=== PATIENT | male | born 1995 | race Hispanic/Latino ===

== ENCOUNTER 2020-07-18 09:43 | Emergency (ER) | payer OTHER ==
[~2020-07-18] VITALS: Ht 162.6 cm; Wt 63.5 kg
[~2020-07-18 09:43] MED LIST: KEFLEX500 MG PO; NORCO 5-325 TA1 EACH PO
[2020-07-18] MEDS ORDERED: SODIUM CHLORIDE 0.9% 1000ML 1,000 ML IV STA (10:06)
[2020-07-18] MEDS ORDERED: PANTOPRAZOLE 40 MG 10ML VIAL IV NR (10:15)
[2020-07-18] MEDS ORDERED: ONDANSETRON HCL INJ 2MG/ML 2ML 2 MG/ML VIAL IV NR (10:15)
[2020-07-18 10:28] LABS: BASOPHILS % 0.4 % (0.0-1.0); EOSINOPHILS # (AUTO) 0.1 (0.0-0.4); EOSINOPHILS % 1.4 % (0.0-6.0); HEMATOCRIT 46.1 % (38.2-49.6); HEMOGLOBIN 15.1 g/dL (14.0-18.0); LYMPHOCYTES # (AUTO) 1.7 (1.0-3.2); LYMPHOCYTES % 19.8 % (18.0-39.1); MEAN CORPUSCULAR HGB CONC 32.8 g/dL (31-35); MEAN CORPUSCULAR VOLUME 85.4 fL (81-99); MONOCYTES # (AUTO) 0.5 (0.2-0.8); MONOCYTES % 6.1 % (4.4-11.3); NEUTROPHILS # (AUTO) 6.1 (2.1-6.9); NEUTROPHILS % 71.8 % (38.7-80.0); PLATELET COUNT 279 x10e3/uL (140-360); RED CELL DISTRIBUTION WIDTH 13.6 % (11.7-14.4)
--- NOTE | 2020-07-18 10:30 | NUR ---
no EKG order, per Dr. Galvez
[2020-07-18 10:32] LABS: BILIRUBIN,URINE NEGATIVE (NEGATIVE); CLARITY,URINE CLEAR (CLEAR); COLOR,URINE YELLOW (YELLOW); KETONES,URINE NEGATIVE (NEGATIVE); LEUKOCYTE ESTERASE ,URINE NEGATIVE (NEGATIVE); NITRITE,URINE NEGATIVE (NEGATIVE); PROTEIN,URINE DIPSTICK NEGATIVE (NEGATIVE); URINE UROBILINOGEN 0.2 mg/dL (0.2 - 1)
[2020-07-18 10:37] LABS: RBC,URINE 0-5 /HPF (0-5); WBC,URINE (MAN) 0-5 /HPF (0-5)
[2020-07-18 10:38] LABS: BACTERIA,URINE RARE /HPF; EPITHELIAL CELLS,URINE RARE /LPF
[2020-07-18 10:38] LABS: INR 0.96; PARTIAL THROMBOPLASTIN TIME 28.9 seconds (23.8-35.5); PROTHROMBIN TIME 13.3 seconds (11.9-14.5)
[2020-07-18 10:46] LABS: ALANINE AMINOTRANSFERASE 19 IU/L (0-55); ALBUMIN 4.1 g/dL (3.5-5.0); ALBUMIN/GLOBULIN RATIO 1.1 (0.8-2.0); ALKALINE PHOSPHATASE 65 IU/L (40-150); ANION GAP 13.6 mmol/L (8-16); BLOOD UREA NITROGEN 13 mg/dL (7-26); BUN/CREATININE RATIO 12 (6-25); CALCIUM 9.4 mg/dL (8.4-10.2); CARBON DIOXIDE 27 mmol/L (22-29); CHLORIDE 103 mmol/L (98-107); CREATINE KINASE 85 IU/L (30-200); CREATININE, SERUM 1.08 mg/dL (0.72-1.25); EST GLOMERULAR FILTRATION RATE > 60 ML/MIN (60-); GLUCOSE 113 mg/dL (74-118); POTASSIUM 3.6 mmol/L (3.5-5.1); SODIUM 140 mmol/L (136-145)
[2020-07-18 10:56] LABS: AMPHETAMINES SCREEN,URINE NEGATIVE (NEGATIVE); BENZODIAZEPINES SCREEN,URINE NEGATIVE (NEGATIVE); PHENCYCLIDINE SCREEN,URINE NEGATIVE (NEGATIVE)
[2020-07-18] MEDS ORDERED: SODIUM CHLORIDE 0.9% 50ML 50 ML ONE (11:02)
[2020-07-18] MEDS ORDERED: IOPAMIDOL 370 MG/ML 200 ML INFUS..BTL INJ ONE (11:02)
--- NOTE | 2020-07-18 11:17 | Emergency Department Note ---
History of Present Illnes History of Present Illness Chief Complaint: COVID PUI History of Present Illness This is a 24 year old male pt came in via POV for multiple complaints, pt intially stated that his chest hurts when he breaths because he is recovering from COVID but during triage, pt stated that its the "ball" in his stomach that has been bothering him, requesting to be"scoped" or "scanned" because everything hurts and he cannot pinpoint what really brought him into the ER, pt tested Positive for COVID on 06/27 and negative on 07/10. Historian: Patient Arrival Mode: Car [employer] Alkylation Required: No Onset (how long ago): week(s) Location: LEFT LOWER CHEST Quality: PAIN WITH BREATHING Radiation: Reports non-radiation Severity: moderate Onset quality: gradual Timing of current episode: intermittent Progression: waxing and waning Chronicity: new Context: Reports recent illness (COVID + ON 06/27/20, NEG ON 07/10) Relieving factors: none Exacerbating factors: other (DEEP BREATHS) Associated symptoms: Reports denies other symptoms Past Medical/Family History Physician Review I have reviewed the patient's past medical and family history. Any updates have been documented here. Past Medical History Recent Fever: No Clinical Suspicion of Infectio: No New/Unexplained Change in Ment: No Past Medical History: None Other Surgery: RIGHT KNEE SX Social History Smoking Cessation: Current some day smoker Counseling Performed: Yes Alcohol Use: Social Any Illegal Drug Use: No TB Exposure/Symptoms: No Physically hurt or threatened: No Family History Family history of heart diseas: No Other Last Tetanus: 01/05/16 Any Pre-Existing Lines (PICC,: No Review of Systems Review of Systems Constitutional: Reports no symptoms EENTM: Reports no symptoms Cardiovascular: Reports as per HPI, Reports chest pain Respiratory: Reports no symptoms Gastrointestinal: Reports as per HPI, Reports abdominal pain Genitourinary: Reports no symptoms Musculoskeletal: Reports no symptoms Integumentary: Reports no symptoms Neurological: Reports no symptoms Psychological: Reports no symptoms Endocrine: Reports no symptoms Hematological/Lymphatic: Reports no symptoms Review of other systems: All other systems negative Physical Exam Related Data Allergies: Coded Allergies: No Known Allergies (Unverified , 01/05/16) Triage Vital Signs Vital Signs Date Time Temp Pulse Resp B/P (MAP) Pulse Ox O2 Delivery O2 Flow Rate FiO2 07/18/20 09:58 98.2 90 18 137/94 100 Room Air Vital signs reviewed: Yes Physical Exam CONSTITUTIONAL Constitutional: Present well-developed, Present well-nourished HENT HENT: Present normocephalic, Present atraumatic, Present oropharynx clear/moist, Present nose normal HENT L/R: Present left ext ear normal, Present right ext ear normal EYES Eyes: Reports PERRL, Reports conjunctivae normal NECK Neck: Present ROM normal PULMONARY Pulmonary: Present effort normal, Present breath sounds normal CARDIOVASCULAR Cardiovascular: Present regular rhythm, Present heart sounds normal, Present capillary refill normal, Present normal rate GASTROINTESTINAL Abdominal: Present soft, Present nontender, Present bowel sounds normal GENITOURINARY Genitourinary: Present exam deferred SKIN Skin: Present warm, Present dry MUSCULOSKELETAL Musculoskeletal: Present ROM normal NEUROLOGICAL Neurological: Present alert, Present oriented x 3, Present no gross motor or sensory deficits PSYCHOLOGICAL Psychological: Present mood/affect normal, Present judgement normal Results Laboratory Result Diagram: 07/18/20 1010 07/18/20 1010 Laboratory Laboratory Tests Test 07/18/20 10:18 07/18/20 10:10 Urine Color Yellow (YELLOW) Urine Clarity Clear (CLEAR) Urine pH 6.5 (5 - 7) Urine Specific [place] 1.015 (1.010-1.025) Urine Protein Negative (NEGATIVE) Urine Glucose (UA) Negative (NEGATIVE) Urine Ketones Negative (NEGATIVE) Urine Blood Negative (NEGATIVE) Urine Nitrite Negative (NEGATIVE) Urine Bilirubin Negative (NEGATIVE) Urine Urobilinogen 0.2 mg/dL (0.2 - 1) Urine Leukocyte Esterase Negative (NEGATIVE) Urine RBC 0-5 /HPF (0-5) Urine WBC 0-5 /HPF (0-5) Urine Epithelial Cells Rare /LPF (NONE) Urine Bacteria Rare /HPF (NONE) Urine Opiates Screen Negative (NEGATIVE) Urine Methadone Screen Negative (NEGATIVE) Urine Barbiturates Screen Negative (NEGATIVE) Urine Phencyclidine Screen Negative (NEGATIVE) Urine Amphetamines Screen Negative (NEGATIVE) Urine Methamphetamines Screen Negative (NEGATIVE) Urine Benzodiazepines Screen Negative (NEGATIVE) Urine Cocaine Screen Negative (NEGATIVE) Urine Cannabinoids Screen Negative (NEGATIVE) White Blood Count 8.48 x10e3/uL (4.8-10.8) Red Blood Count 5.40 x10e6/uL (4.3-5.7) Hemoglobin 15.1 g/dL (14.0-18.0) Hematocrit 46.1 % (38.2-49.6) Mean Corpuscular Volume 85.4 fL (81-99) Mean Corpuscular Hemoglobin 28.0 pg (28-32) Mean Corpuscular Hemoglobin Concent 32.8 g/dL (31-35) Red Cell Distribution Width 13.6 % (11.7-14.4) Platelet Count 279 x10e3/uL (140-360) Neutrophils (%) (Auto) 71.8 % (38.7-80.0) Lymphocytes (%) (Auto) 19.8 % (18.0-39.1) Monocytes (%) (Auto) 6.1 % (4.4-11.3) Eosinophils (%) (Auto) 1.4 % (0.0-6.0) Basophils (%) (Auto) 0.4 % (0.0-1.0) Neutrophils # (Auto) 6.1 (2.1-6.9) Lymphocytes # (Auto) 1.7 (1.0-3.2) Monocytes # (Auto) 0.5 (0.2-0.8) Eosinophils # (Auto) 0.1 (0.0-0.4) Basophils # (Auto) 0.0 (0.0-0.1) Absolute Immature Granulocyte (auto 0.04 x10e3/uL (0-0.1) Prothrombin Time 13.3 seconds (11.9-14.5) Prothromb Time International Ratio 0.96 Activated Partial Thromboplast Time 28.9 seconds (23.8-35.5) Sodium Level 140 mmol/L (136-145) Potassium Level 3.6 mmol/L (3.5-5.1) Chloride Level 103 mmol/L (98-107) Carbon Dioxide Level 27 mmol/L (22-29) Anion Gap 13.6 mmol/L (8-16) Blood Urea Nitrogen 13 mg/dL (7-26) Creatinine 1.08 mg/dL (0.72-1.25) Estimat Glomerular Filtration Rate > 60 ML/MIN (60-) BUN/Creatinine Ratio 12 (6-25) Glucose Level 113 mg/dL (74-118) Calcium Level 9.4 mg/dL (8.4-10.2) Total Bilirubin 0.6 mg/dL (0.2-1.2) Aspartate Amino Transf (AST/SGOT) 17 IU/L (5-34) Alanine Aminotransferase (ALT/SGPT) 19 IU/L (0-55) Alkaline Phosphatase 65 IU/L (40-150) Creatine Kinase 85 IU/L (30-200) Creatine Kinase MB 0.80 ng/mL (0-5.0) Troponin I < 0.001 ng/mL (0-0.300) Total Protein 7.7 g/dL (6.5-8.1) Albumin 4.1 g/dL (3.5-5.0) Globulin 3.6 g/dL (2.3-3.5) Albumin/Globulin Ratio 1.1 (0.8-2.0) Lab results reviewed: Yes Imaging Imaging results reviewed: Yes Impressions EXAM: CT Chest, Abdomen and Pelvis WITH contrast INDICATION: Chest pain and shortness of breath concerning for pulmonary embolism. Generalized abdominal pain. COMPARISON: None. TECHNIQUE: Chest, abdomen and pelvis were scanned utilizing a multidetector helical scanner from the lung apex to the pubic symphysis after administration of IV contrast. Coronal and sagittal reformations were obtained. Routine protocol was performed. Scan was performed when during portal venous phase. IV CONTRAST: 100 mL of Isovue 370 ORAL CONTRAST: None COMPLICATIONS: None RADIATION DOSE: Total DLP: 1213 mGy*cm Estimated effective dose: (DLP x 0.015 x size factor) mSv CTDIvol has been reviewed. It is below the limits set by the Radiation Protocol Committee (RPC). Dose modulation, iterative reconstruction, and/or weight based adjustment of the mA/kV was utilized to reduce the radiation dose to as low as reasonably achievable. FINDINGS: LINES and TUBES: None. VASCULAR: The pulmonary arteries are not well opacified due to mistimed bolus. There are no large central pulmonary filling defects. The pulmonary trunk has normal caliber measuring 2.1 cm. The ascending and descending aorta have normal enhancement and caliber measuring 2.0 cm and 1.7 cm, respectively. LUNGS AND AIRWAYS: The lungs are unremarkable. Airways are normal. PLEURA: The pleural spaces are clear. HEART AND MEDIASTINUM: The thyroid gland is normal. No mediastinal, hilar or axillary lymphadenopathy. The heart is normal in size. There is no pericardial effusion. HEPATOBILIARY: No focal hepatic lesions. No biliary ductal dilation. GALLBLADDER: No radio-opaque stones or sludge. No wall thickening. SPLEEN: No splenomegaly. PANCREAS: No focal masses or ductal dilatation. ADRENALS: No adrenal nodules KIDNEYS/URETERS: Kidneys enhance symmetrically. No hydronephrosis. No cystic or solid mass lesions. No stones. GI TRACT: No abnormal distention, wall thickening, or evidence of bowel obstruction. Appendix is normal. PELVIC ORGANS/BLADDER: Unremarkable. LYMPH NODES: There are prominent mesenteric lymph nodes, particularly in the right lower quadrant, none of which meet size criteria for pathologic enlargement. No lymphadenopathy. VESSELS: Unremarkable. PERITONEUM / RETROPERITONEUM: No free air or fluid. BONES: Unremarkable. SOFT TISSUES: Unremarkable. IMPRESSION: 1. No evidence of central pulmonary embolism. 2. No acute abnormality in the chest, abdomen and pelvis. 3. Prominent mesenteric lymph nodes particularly in the right lower quadrant, an indeterminate finding which is most likely benign. However, similar findings can be seen with mesenteric adenitis, a self-limiting inflammation of the mesentery. Signed by: Casey Peoples MD on 07/18/2020 12:24 PM Assessment & Plan Medical Decision Making MDM S/P RECENT COVID, PRESENTS WITH PLEURITIC CP AND INTERMITTENT ABD PAIN - CHECK CBC, CHEM, CARDIACS, CT CHEST/CT ABD/PELVIS - R/O PE, NSTEMI, ELECTROLYE ABNL, RENAL INSUFF Reassessment Reassessment LABS AND CT'S ARE NORMAL, PATIENT LOOKS WELL, NL VITALS & NL EXAM - DC HOME, OTC IBUPROFEN/TYLENOL, F/U PCP, MEDROL DOSE ELENO Assessment & Plan Final Impression: (1) Chest wall pain Depart Disposition: HOME, SELF-CARE Last Vital Signs Date Time Temp Pulse Resp B/P (MAP) Pulse Ox O2 Delivery O2 Flow Rate FiO2 07/18/20 09:58 98.2 90 18 137/94 100 Room Air Home Meds Reported Medications Hydrocodone Bit/Acetaminophen (NORCO 5-325 TABLET) 1 Each Tablet, 1 EACH PO Q4HR for PAIN, TAB 01/05/16 Cephalexin Monohydrate (KEFLEX) 500 Mg Capsule, 500 MG PO BID, #20 01/05/16 Medications in the ED Pantoprazole Sodium 40 mg ONCE IV Last administered on 07/18/20at 10:28; Admin Dose 40 MG; Start 07/18/20 at 10:15; Stop 07/18/20 at 12:00 Ondansetron HCl 4 mg ONCE IV Last administered on 07/18/20at 10:29; Admin Dose 4 MG; Start 07/18/20 at 10:15; Stop 07/18/20 at 11:59 Sodium Chloride 1,000 ml @ 0 mls/hr Q0M STAT IV Last administered on 07/18/20at 10:28; Admin Dose 250 MLS/HR; Start 07/18/20 at 10:06; Stop 07/18/20 at 10:11; Status DC Sodium Chloride 50 ml @ ud STK-MED ONCE .ROUTE ; Start 07/18/20 at 11:02; Stop 07/18/20 at 10:55; Status DC Iopamidol 74,000 mg STK-MED ONCE INJ ; Start 07/18/20 at 11:02; Stop 07/18/20 at 10:56; Status DC RADHA SHARMA MD Jul 18, 2020 11:17
--- NOTE | 2020-07-18 12:28 | Diagnostic Imaging Report ---
EXAM: CT Chest, Abdomen and Pelvis WITH contrast INDICATION: Chest pain and shortness of breath concerning for pulmonary embolism. Generalized abdominal pain. COMPARISON: None. TECHNIQUE: Chest, abdomen and pelvis were scanned utilizing a multidetector helical scanner from the lung apex to the pubic symphysis after administration of IV contrast. Coronal and sagittal reformations were obtained. Routine protocol was performed. Scan was performed when during portal venous phase. IV CONTRAST: 100 mL of Isovue 370 ORAL CONTRAST: None COMPLICATIONS: None RADIATION DOSE: Total DLP: 1213 mGy*cm Estimated effective dose: (DLP x 0.015 x size factor) mSv CTDIvol has been reviewed. It is below the limits set by the Radiation Protocol Committee (RPC). Dose modulation, iterative reconstruction, and/or weight based adjustment of the mA/kV was utilized to reduce the radiation dose to as low as reasonably achievable. FINDINGS: LINES and TUBES: None. VASCULAR: The pulmonary arteries are not well opacified due to mistimed bolus. There are no large central pulmonary filling defects. The pulmonary trunk has normal caliber measuring 2.1 cm. The ascending and descending aorta have normal enhancement and caliber measuring 2.0 cm and 1.7 cm, respectively. LUNGS AND AIRWAYS: The lungs are unremarkable. Airways are normal. PLEURA: The pleural spaces are clear. HEART AND MEDIASTINUM: The thyroid gland is normal. No mediastinal, hilar or axillary lymphadenopathy. The heart is normal in size. There is no pericardial effusion. HEPATOBILIARY: No focal hepatic lesions. No biliary ductal dilation. GALLBLADDER: No radio-opaque stones or sludge. No wall thickening. SPLEEN: No splenomegaly. PANCREAS: No focal masses or ductal dilatation. ADRENALS: No adrenal nodules KIDNEYS/URETERS: Kidneys enhance symmetrically. No hydronephrosis. No cystic or solid mass lesions. No stones. GI TRACT: No abnormal distention, wall thickening, or evidence of bowel obstruction. Appendix is normal. PELVIC ORGANS/BLADDER: Unremarkable. LYMPH NODES: There are prominent mesenteric lymph nodes, particularly in the right lower quadrant, none of which meet size criteria for pathologic enlargement. No lymphadenopathy. VESSELS: Unremarkable. PERITONEUM / RETROPERITONEUM: No free air or fluid. BONES: Unremarkable. SOFT TISSUES: Unremarkable. IMPRESSION: 1. No evidence of central pulmonary embolism. 2. No acute abnormality in the chest, abdomen and pelvis. 3. Prominent mesenteric lymph nodes particularly in the right lower quadrant, an indeterminate finding which is most likely benign. However, similar findings can be seen with mesenteric adenitis, a self-limiting inflammation of the mesentery. Signed by: Casey Peoples MD on 07/18/2020 12:24 PM
[2020-07-18 12:42] VITALS: BP 117/67
== END 2020-07-18 12:53 | disposition home or self-care (01) ==
LOC: ER 10:01
DX: R07.89 Other chest pain (principal); F17.210 Nicotine dependence, cigarettes, uncomplicated
CPT/HCPCS: 36415; 71260; 74177; 80053; 80307; 81001; 82550; 82553; 84484; 85025; 85610; 85730; 99284; C9113; J2405; J7030; Q9967